=== PATIENT | male | born 1955 | race Caucasian/White ===

== ENCOUNTER 2020-08-05 08:45 | Outpatient (REF) | payer OTHER, SELFPAY ==
--- NOTE | 2020-08-05 | FL_ITS ---
EXAMINATION: XR FLUOROSCOPY WITH IMAGES CLINICAL INFORMATION: Intrathecal drug delivery system trial COMPARISON: None. TECHNIQUE: Fluoroscopy performed by Dr. Cesario Bess. Fluoroscopy time: 0.3 minutes DAP: 7.13 Gycm2 Images: 1 FINDINGS: There is hardware from prior spinal fusion lower lumbar spine with rods and pedicle screws and disc spacers. Spinal needle is seen interlaminar upper lumbar spine, specific level not determined on this single view. IMPRESSION: Fluoroscopy for pain management procedure.
== END 2020-08-05 08:46 | disposition home or self-care (01) ==
LOC: HO.RADIR 08:45
PROVIDERS: Visit Provider Anesthesiology
DX: M96.1 Postlaminectomy syndrome, not elsewhere classified (principal); G89.4 Chronic pain syndrome; Z88.0 Allergy status to penicillin; Z88.8 Allergy status to other drugs, medicaments and biological substances
CPT/HCPCS: 62323; J1170; Q9967

== ENCOUNTER → 2020-08-11 13:25 | Outpatient (BNVA) | payer OTHER, SELFPAY | PROVIDERS: Visit Provider Anesthesiology | DX: Z76.89 Persons encountering health services in other specified circumstances (principal) ==

== ENCOUNTER 2020-08-15 06:04 | Day surgery (SDC) | payer MEDICARE, SELFPAY ==
--- NOTE | 2020-08-14 13:05 | HO.ANESPROP2 ---
Documented by User: Terrie Mota 08/14/20 13:13 HPI - Anesthesia Eval Consult details Narrative: 65yo M for intrathecal drug delivery implant FORMERLY [facility], [facility] Past Medical History Medical History (Updated 08/15/20 @ 07:20 by Sneha Lau, RN) Chronic pain syndrome CVA (cerebral vascular accident) HTN (hypertension) Hyperlipidemia Peripheral polyneuropathy Postlaminectomy syndrome Surgical History Surgical History (Updated 08/15/20 @ 06:43 by Sneha Lau, RN) History of back surgery History of carpal tunnel release of both wrists History of elbow surgery Hx of tonsillectomy S/P insertion of intrathecal pump Social History Social History Smoking Status: Never smoker Use of substances other than those prescribed or required for medical reasons: No Advance Directives: No Meds Allergies Allergy/AdvReac Type Severity Reaction Status Date / Time Penicillins [PCN] Allergy Unknown RASH OF Verified 08/15/20 06:20 MOUTH AREA NSAIDS Allergy Unknown Hives Uncoded 08/15/20 06:20 Home Medications Medication Instructions Recorded Confirmed Type atorvastatin 80 mg tablet 80 mg PO DAILY 08/11/20 History diltiazem HCl 30 mg tablet mg PO 08/11/20 History pregabalin 50 mg capsule mg PO 08/11/20 History Exam Exam Date and Time: August 14, 2020 1305 Assessment and Plan Assessment Anesthesia Assessment: Chart Reviewed Documented by User: Carlos A Sidhu 08/15/20 07:34 FOR[facility]LY [facility] Past Medical History Medical History (Updated 08/15/20 @ 07:20 by Sneha Lau, PRANAY) Chronic pain syndrome CVA (cerebral vascular accident) HTN (hypertension) Hyperlipidemia Peripheral polyneuropathy Postlaminectomy syndrome Surgical History Surgical History (Updated 08/15/20 @ 06:43 by Sneha Lau, RN) History of back surgery History of carpal tunnel release of both wrists History of elbow surgery Hx of tonsillectomy S/P insertion of intrathecal pump Social History Social History Smoking Status: Never smoker Use of substances other than those prescribed or required for medical reasons: No Advance Directives: No Meds Allergies Allergy/AdvReac Type Severity Reaction Status Date / Time Penicillins [PCN] Allergy Unknown RASH OF Verified 08/15/20 06:20 MOUTH AREA NSAIDS Allergy Unknown Hives Uncoded 08/15/20 06:20 Home Medications Medication Instructions Recorded Confirmed Type atorvastatin 80 mg tablet 80 mg PO DAILY 08/11/20 History diltiazem HCl 30 mg tablet mg PO 08/11/20 History pregabalin 50 mg capsule mg PO 08/11/20 History Exam Airway Mallampati Class: IV (Very limited mouth opening) TM Dist: >3cm Neck ROM: Full Heart: RRR Assessment and Plan Assessment Anesthesia Assessment: Anesthesia Plan Discussed Final Anesthetic Review NPO: Yes ASA Class: III Anesthetic Plan Anesthetic Plan: GA
[2020-08-15] VITALS (26 sets, daily range): BP systolic 133–192; BP diastolic 62–135; PULSE 71–97; RESP 18; TEMP 36.4–36.9; O2SAT 88–96; BMI 30.1
[2020-08-15] MEDS: Lactated Ringers 1,000 ML 100 ML IVCONT (06:52)
--- NOTE | 2020-08-15 07:14 | FL_ITS ---
EXAMINATION: XR FLUOROSCOPY WITH IMAGES CLINICAL INFORMATION: Intrathecal drug delivery implant COMPARISON: None. TECHNIQUE: Fluoroscopy performed by Dr. Cesario Bess. Fluoroscopy time: 0.4 minutes DAP: 9.03 mGycm2 Images: 3 FINDINGS: Images demonstrate leads/electrodes projecting over the lower thoracic spine. There is a suggestion of a thin catheter projecting over the midline, this projects anterior to the spine in the lateral view. An image demonstrates lower spinal instrumentation and instruments projecting over the pelvis. FL/FL guidance in OR IMPRESSION: Imaging assistance provided in the operating room during implant placement
--- NOTE | 2020-08-15 07:31 | MHC.SHP ---
Pre-Procedural Eval Section A The patient is an INPATIENT: No The History & Physical has been completed within 30 days and I have reviewed it.: Yes Section B Chief Complaint: Postlaminectomy Syndrome Allergies: Allergies Allergy/AdvReac Type Severity Reaction Status Date / Time Penicillins [PCN] Allergy Unknown RASH OF Verified 08/15/20 06:20 MOUTH AREA NSAIDS Allergy Unknown Hives Uncoded 08/15/20 06:20 Plan Diagnosis/Plan: Unchanged Patient has been examined and remains a candidate for the planned procedure
[2020-08-15] MEDS: ceFAZolin Sodium/Dextrose,Iso 2 GM/50 ML PIGGYBACK IV (07:44)
--- NOTE | 2020-08-15 10:44 | PM.OP ---
Brief Operative Note Date of procedure: 08/15/20 Pre-op diagnosis: postLaminectomy syndrome Post-op diagnosis: same Procedure: implantation of intrathecal drug delivery system pain pump Implants: intrathecal catheter and intrathecal pump Surgeon: Cesario Bess MD Anesthesia: GETA Estimated blood loss (mL): 50 IV fluids (mL): 1,200 Urine output (mL): 0 Pathology: none sent Condition: stable Disposition: PACU
--- NOTE | 2020-08-15 10:46 | W.PM.OPN ---
Operative Note Operative Note Narrative: Narrative: This note is constructed using voice recognition software. While every effort has been made to ensure accuracy, pipe recovery specialist errors may have been included. Narrative: Informed consent was obtained for the procedure before surgery and all the risks and benefits were explained to the patient. All the questions were answered. SHE was brought to the operating room and positioned supine on the stretcher. Antibiotic 2 G CEFAZOLIN was administered 30 minutes before the procedure. General anesthesia was induced and the patient was intubated. He was positioned left lateral decubital on the operating table, all pressure points were protected, padded. Time out was performed delineation correct patient with identifier, correct site and side of the surgery, risk of fire, needs for antibiotics and DVT prophylactics. the patient was positioned prone on the operating table. After that the patient entire back, Was prepped with chloroprep twice and draped with full body drape including ioban film. Sterilely drape C-arm was brought over the OR field and squared picturesl pictures of the L1, L2, L3 vertebrae were demonstrated on the screen,.. the entrance point for the catheter was chosen as the L2-L3 interspace. In the left paramedian fashion 1,5 cm away from the midline to the right 5 cm vertical skin incision was made with #10 scalpel. The incision was widened with the retractors and deepened with electrocautery. Thorough hemostasis was obtained using electrocautery.. the prevertebral fascia was freed from overlaying tissues. After that 100 mm introducer spinal 16 Sixteen g needle was inserted under x-ray guidance in the projection of the LEFT L4 pedicle. The needle advanced under the x-ray guidance with intermittent A-P and lateral pictures toward the spinal canal. When on the lateral view the needle entered the spinal canal the stylet was removed and the clear flow of the CSF was obtain through the needle hub. Intrathecal Ascenda catheter was inserted through the needle and advanced under the x-ray guidance toward the T8 vertebral body projection. The stylet was removed from the catheter and clear flow of CSF fluid straw colored and clear was observed coming from the catheter. to concentric purse string sutures was applied around the needle and tide. after that the needle was removed and anchoring device was brought on the field. It was dislodged on the catheter to the level of the prevertebral fascia and then it was engaged on the catheter. Two nonabsorbable sutures were used to stitch the anchoring device to prevertebral fascia.After that the thorough irrigation of the wound was performed and wound was packed with Vancomycin soaked 4 x 4. Attention then was concentrated on the patient's right buttock. 2 cm below the right iliac crest line to the skin of the local anesthetic bupivacaine was injected in the linear horizontal fashion. After that 9 cm horizontal incision was performed in patient's buttock alongside the injected line. Thorough hemostasis was obtained using cautery device. After that the wound was widened and made 2.5 cm deep . The wound was extended medially and laterally as well as caudally and cranially to form the space to accommodate the pump. Thorough hemostasis was performed. The wound was irrigated with bacitracin containing normal saline and then TUNNELING DEVICE was used to connect both wounds The catheter was trimmed appropriately after that and sutureless connection device was mounted on the catheter. After that sutureless connection device was connected to the pump. Aspiration of the side port of the pump revealed clear flow of CSF. 3 anchoring 0-0 etibone sutures were applied in most inferior MEDIAL SUPERIOR LATERAL and superior medial corners OF THE WOUND. After that the sutures were connected to the BRACKETS on the body of the pump, intrathecal catheter was gathered behind the body of the pump and pump was dislodged into the wound. After that the anchoring sutures were tied. AFTER THAT NONCORING NEEDLE WAS USED AGAIN TO AXIS SIDE PORT OF THE CATHETER AND FREE FLOW OF CSF INTO THE SYRINGE WAS DEMONSTRATED. . Thorough irrigation was performed again in both wounds. Thorough hemostasis was verified. 0 polisorb sutures were used to close both wounds, 2-0 Polisorb suture of the same nature were used to approximate the skin. Britta were applied to the skin line and Bacitracin - ointment was applied to the staple lines... Sterile dressing with sterile 4x4s was performed, abdominal binder was applied. Upon completion of the procedure patient was awaken extubated and taken outside of the operating room to recovery room where HE recovered uneventfully. HE went home without immediate complication.
[2020-08-15] MEDS: fentaNYL citrate/PF 100 MCG/2 ML VIAL 50 MCG IVPUSH ×2 (11:02→11:15)
[2020-08-15] MEDS: Labetalol HCL 100 MG/20 ML VIAL 10 MG IVPUSH (11:24)
--- NOTE | 2020-08-15 14:54 | PC.NURSE ---
1345- DR MURO AT EVAL PT FOR DISCHARGE, PT NOW MORE FULLY AWAKE AND ALERT SITTING UP IN BEDSIDE RECLINER CHAIR, CLEARED FOR DISCHARGE, MONITORS AND IVF DC'D TOTAL IN IS 900 ML LR, ABD BINDER DCD KERLIX GAUZE WRAPPED AROUND BACK DRESSINGS CDI, TO ABD TO CREATE A BARRIER BETWEEN ABD BINDER AND SKIN REQ BY COKE LOADER DENISSE TUCKER, ABD BINDER REPLACED ASST PT WITH CLOTHING CHANGE, IV DCD TIP INTACT PRESSURE AND DRESSING TO SITE TO DISCHARGE VIA WC. PT AWARE THAT PRESCRIPTION PAIN MED SENT TO PHARMACY.
== END 2020-08-15 14:28 | disposition home or self-care (01) ==
PROVIDERS: Visit Provider Anesthesiology
PROC: (CPT 62350; principal; 2020-08-15 07:30)
DX: M96.1 Postlaminectomy syndrome, not elsewhere classified (principal); G62.9 Polyneuropathy, unspecified; G89.4 Chronic pain syndrome; I10 Essential (primary) hypertension; E78.5 Hyperlipidemia, unspecified; Z86.73 Personal history of transient ischemic attack (TIA), and cerebral infarction without residual deficits; Z88.0 Allergy status to penicillin; Z88.8 Allergy status to other drugs, medicaments and biological substances; Z79.899 Other long term (current) drug therapy
CPT/HCPCS: 62350; 62362; C1772; J0131; J0690; J2250; J2405; J3010; J3370; Q9967

== ENCOUNTER → 2020-08-21 13:35 | Outpatient (BNVA) | payer MEDICARE, SELFPAY | PROVIDERS: Visit Provider Anesthesiology | DX: Z48.89 Encounter for other specified surgical aftercare (principal); Z48.01 Encounter for change or removal of surgical wound dressing; G62.9 Polyneuropathy, unspecified; G89.4 Chronic pain syndrome; M96.1 Postlaminectomy syndrome, not elsewhere classified | CPT/HCPCS: 99212 ==

== ENCOUNTER → 2020-08-28 12:44 | Outpatient (BNVA) | payer MEDICARE, SELFPAY | PROVIDERS: Visit Provider Anesthesiology | DX: G62.9 Polyneuropathy, unspecified (principal); G89.4 Chronic pain syndrome; M96.1 Postlaminectomy syndrome, not elsewhere classified | CPT/HCPCS: 99212 ==

== ENCOUNTER → 2020-09-25 11:04 | Outpatient (BNVA) | payer MEDICARE, SELFPAY | PROVIDERS: Visit Provider Anesthesiology | DX: M96.1 Postlaminectomy syndrome, not elsewhere classified (principal); M62.9 Disorder of muscle, unspecified; G89.4 Chronic pain syndrome | CPT/HCPCS: 99212 ==

== ENCOUNTER 2020-12-02 07:01 | Outpatient (REF) | payer MEDICARE, SELFPAY | END 2020-12-02 07:02 | disposition home or self-care (01) | LOC: HO.RADIR 07:01 | PROVIDERS: Visit Provider Anesthesiology | DX: Z13.89 Encounter for screening for other disorder (principal) ==

== ENCOUNTER 2020-12-23 06:06 | Outpatient (REF) | payer MEDICARE, SELFPAY | END 2020-12-23 06:07 | disposition home or self-care (01) | LOC: HO.RADIR 06:06 | PROVIDERS: Visit Provider Anesthesiology | DX: G89.4 Chronic pain syndrome (principal); G62.9 Polyneuropathy, unspecified; M96.1 Postlaminectomy syndrome, not elsewhere classified; I10 Essential (primary) hypertension; E78.5 Hyperlipidemia, unspecified; Z88.6 Allergy status to analgesic agent; Z88.1 Allergy status to other antibiotic agents; Z88.0 Allergy status to penicillin | CPT/HCPCS: 62370 ==

== ENCOUNTER 2021-03-31 07:34 | Outpatient (REF) | payer MEDICARE, SELFPAY | END 2021-03-31 07:35 | disposition home or self-care (01) | LOC: HO.RADIR 07:34 | PROVIDERS: Visit Provider Anesthesiology | DX: G62.9 Polyneuropathy, unspecified (principal); G89.4 Chronic pain syndrome; M96.1 Postlaminectomy syndrome, not elsewhere classified; Z45.1 Encounter for adjustment and management of infusion pump | CPT/HCPCS: 62370 ==